=== PATIENT | female | born 1960 | race Caucasian/White ===

== ENCOUNTER 2020-08-14 19:20 | Inpatient (IN) | payer MEDICARE, MEDICAID ==
[2020-08-14 20:30] LABS: ALBUMIN 2.6 g/dL (3.5-5.0); ALKALINE PHOSPHATASE 114 U/L (38-126); ANION GAP 10 (5-19); ASPARTATE AMINO TRANSFERASE 19 U/L (14-36); BILIRUBIN,DIRECT 0.4 mg/dL (0.0-0.4); BILIRUBIN,TOTAL 0.5 mg/dL (0.2-1.3); BLOOD UREA NITROGEN 14 mg/dL (7-20); CALCIUM 8.2 mg/dL (8.4-10.2); CARBON DIOXIDE 23 mmol/L (22-30); CHLORIDE 100 mmol/L (98-107); INTERNATIONAL RATION (INR) 1.12; POTASSIUM 4.1 mmol/L (3.6-5.0); PROTHROMBIN TIME 14.6 SEC (11.4-15.4); TOTAL PROTEIN 5.4 g/dL (6.3-8.2)
[2020-08-14 20:31] LABS: APPEARANCE,URINE CLEAR; BILIRUBIN,URINE NEGATIVE (NEGATIVE); COLOR,URINE YELLOW; GLUCOSE, URINE >=500 mg/dL (NEGATIVE); KETONES,URINE 20 mg/dL (NEGATIVE); PROTEIN,URINE 30 mg/dL (NEGATIVE); URINE SPECIFIC GRAVITY 1.036; UROBILINOGEN,URINE NEGATIVE mg/dL (<2.0)
[2020-08-14 20:31] LABS: ABSOLUTE BASOPHILS # (AUTO) 0.1 10^3/uL (0.0-0.2); ABSOLUTE EOSINOPHILS # (AUTO) 0.1 10^3/uL (0.0-0.6); ABSOLUTE LYMPHOCYTES (AUTO) 0.9 10^3/uL (0.5-4.7); ABSOLUTE MONOCYTES (AUTO) 0.9 10^3/uL (0.1-1.4); BASOPHILS % (AUTO) 0.6 % (0-2); EOSINOPHILS % (AUTO) 0.9 % (0-6); HEMOGLOBIN 12.6 g/dL (12.0-15.5); LYMPHOCYTES % (AUTO) 9.3 % (13-45); MEAN CORPUSCULAR HEMOGLOBIN 30.9 pg (27.0-33.4); MEAN CORPUSCULAR HGB CONC 33.1 g/dL (32.0-36.0); MEAN CORPUSCULAR VOLUME 93 fl (80-97); MONOCYTES % (AUTO) 9.2 % (3-13); PLATELET COUNT 224 10^3/uL (150-450); RED BLOOD COUNT 4.08 10^6/uL (3.72-5.28); RED CELL DISTRIBUTION WIDTH 13.4 % (11.5-14.0); TOTAL CELLS COUNTED % (AUTO) 100 %
[2020-08-14 20:37] LABS: GLUCOSE 431 mg/dL (75-110)
[2020-08-14 20:43] LABS: VENOUS BLOOD BASE EXCESS -0.8 mmol/L; VENOUS BLOOD HCO3 24.9 mmol/L (20-32); VENOUS BLOOD PCO2 44.7 mmHg (35-63); VENOUS BLOOD PH 7.36 (7.30-7.42)
[2020-08-14] MEDS ORDERED: CLINDAMYCIN 600 MG/D5W RTU 600 MG/50 ML RTUPB IV ONE (21:19)
[2020-08-14] MEDS ORDERED: NORMAL SALINE 1000 ML 1,000 ML IV ONE (21:19)
[2020-08-14] MEDS ORDERED: INSULIN REG, HUMAN 100 UNIT/ML 3 ML VIAL (PYX) SUBCUT ONE (21:20)
--- NOTE | 2020-08-14 21:21 | ER Document Report ---
ED Wound - General Mode of Arrival: Medic Information source: Patient - HPI Patient complains to provider of: Wound infection Occurred: Last week Onset/Duration: Persistent Quality of pain: Achy Pain Level: 3 Associated Symptoms: Drainage <RAUL HICKMANLANETTE - Last Filed: 08/15/20 01:59> <TERI SAPP - Last Filed: 08/15/20 03:17> - General Chief Complaint: Wound Infection Stated Complaint: FALL Time Seen by Provider: 08/14/20 20:57 Notes: Patient states that she has had tenderness to the right buttock area for the past week and has had drainage from the wound for the past 6 days. Patient reports low-grade fever of 99-100 off and on this week. Patient states that she was at home this evening and slid in the back tub and had difficulty getting out of the bathtub. Patient states that her son was unable to get her out of the bathtub and so she had to call EMS. Patient states that she did not get any injury from the fall but is here for evaluation of the wound to the buttock. Ricki wakefield is diabetic and states that her blood sugars have typically been controlled, patient states she has been compliant with her diabetic medication. (CARLOS HICKMAN) - Related Data Allergies/Adverse Reactions: Penicillins Allergy (Verified 08/14/20 19:45) Past Medical History - General Information source: Patient - Social History Smoking Status: Former Smoker Frequency of alcohol use: None Drug Abuse: None Occupation: none Lives with: Family Family History: Reviewed & Not Pertinent - Past Medical History Cardiac Medical History: Reports: Hx DVT, Hx Hypertension Endocrine Medical History: Reports: Hx Diabetes Mellitus Type 1 Psychiatric Medical History: Reports: Hx Depression Past Surgical History: Reports: Hx Orthopedic Surgery - spinal cyst removal, right wrist surgery, Hx Tonsillectomy, Hx Tubal Ligation <CARLOS HICKMAN - Last Filed: 08/15/20 01:59> Review of Systems - Review of Systems Constitutional: No symptoms reported. denies: Fever EENT: No symptoms reported Cardiovascular: No symptoms reported. denies: Chest pain Respiratory: No symptoms reported. denies: Cough, Short of breath Gastrointestinal: No symptoms reported. denies: Vomiting Genitourinary: Frequency Female Genitourinary: No symptoms reported Musculoskeletal: No symptoms reported. denies: Back pain Skin: Other - Abscess to right buttock Hematologic/Lymphatic: No symptoms reported Neurological/Psychological: Weakness - Difficulty getting up from a fall in bathtub <CARLOS HICKMAN - Last Filed: 08/15/20 01:59> Physical Exam - General General appearance: Appears well, Alert In distress: None - HEENT Head: Normocephalic, Atraumatic Eyes: Normal Conjunctiva: Normal Nasal: Normal Mouth/Lips: Normal Neck: Normal, Supple. No: Lymphadenopathy - Respiratory Respiratory status: No respiratory distress Chest status: Nontender Breath sounds: Normal. No: Rales, Rhonchi, Stridor, Wheezing Chest palpation: Normal - Cardiovascular Rhythm: Regular Heart sounds: S1 appreciated, S2 appreciated - Abdominal Inspection: Morbidly Obese Bowel sounds: Normal Tenderness: Nontender - Back Back: Normal, Nontender. No: Vertebra tenderness - Extremities General upper extremity: Normal inspection, Normal ROM General lower extremity: Normal inspection, Normal ROM - Neurological Neuro grossly intact: Yes Cognition: Normal David Coma Scale Eye Opening: Spontaneous David Coma Scale Verbal: Oriented David Coma Scale Motor: Obeys Commands David Coma Scale Total: 15 - Psychological Associated symptoms: Normal affect, Normal mood - Skin Skin Temperature: Warm Skin Moisture: Dry Skin irregularity: other - Large abscess to right buttock with black and necrotic tissue over the opening of the wound, surrounding skin is tender and indurated, no obvious involvement of the perianal area <VICKRAULLANETTE - Last Filed: 08/15/20 01:59> - Vital signs Vitals: Temp 98.9 F 08/14/20 19:20 Course - Laboratory Result Diagrams: 08/14/20 19:43 08/14/20 19:43 <RAUL HICKMANANDRÉSGRACE - Last Filed: 08/15/20 01:59> - Laboratory Result Diagrams: 08/14/20 19:43 08/14/20 19:43 <TERI SAPP - Last Filed: 08/15/20 03:17> - Re-evaluation Re-evalutation: 08/14/20 21:[address] Baugh, Dr. Baugh to bedside for examination, he advises C T imaging to further evaluate the wound and antibiotic administration at this time. 08/15/20 01:59 Patient with perirectal abscess noted on CT scan, call placed for consultation with surgeon, surgeon currently in a case but message was relayed via the circulating nurse. Dr. leger will be by to see patient once he is finished with current case. Bedside report and handoff given to RICKI Shabazz (CARLOS HICKMAN) I spoke with surgeon Dr. Leger. He states he would like to take the patient to the operating room now, he requests a stat Accu-Chek. This was performed this was 254. 08/15/20 03:15 [address] spoke with both Dr. Leger and general surgeon Dr. Holman again, Dr. Leger req uested a consult be placed and he will see the patient but is requesting Dr. Leger to admit the patient, Dr. Leger states agreement, he states he will admit the patient, he recommends we give 5 units of insulin now and patient be kept n.p.o., patient has been n.p.o. since 11 AM yesterday, patient states agreement with operating room plan for incision and drainage of perirectal abscess. ( TERI SAPP) - Vital Signs Vital signs: Temp Pulse Resp BP Pulse Ox 99.2 F 22 H 180/94 H 95 08/15/20 01:40 08/15/20 00:01 08/15/20 00:01 08/15/20 00:01 - Laboratory Laboratory results interpreted by me: 08/14/20 08/14/20 08/14/20 19:43 19:43 20:00 Lymph % (Auto) 9.3 L Seg Neutrophils % 80.0 H Sodium 132.9 L Glucose 431 H* POC Glucose Calcium 8.2 L Total Protein 5.4 L Albumin 2.6 L Urine Protein 30 H Urine Glucose (UA) >=500 H Urine Ketones 20 H 08/14/20 08/15/20 20:05 03:07 Lymph % (Auto) Seg Neutrophils % Sodium Glucose POC Glucose 432 H* 254 H Calcium Total Protein Albumin Urine Protein Urine Glucose (UA) Urine Ketones Discharge <CARLOS HICKMAN - Last Filed: 08/15/20 01:59> - Discharge Admitting Provider: Surgicalist Unit Admitted: OR <TERI SAPP - Last Filed: 08/15/20 03:17> - Discharge Clinical Impression: Perirectal abscess Fall Qualifiers: Encounter type: initial encounter Qualified Code(s): W19.XXXA - Unspecified fall, initial encounter Condition: Stable Disposition: ADMITTED OBSERVATION
--- NOTE | 2020-08-15 01:51 | RADIOLOGY REPORT (SQ) ---
CLINICAL INDICATION: buttock abscess, ?fistula. CREAT 0.55. . TECHNIQUE: Noncontrast followed by contrast enhanced spiral axial CT imaging was obtained of the abdomen and pelvis with multiplanar reconstructions. This exam was performed according to our departmental dose-optimization program, which includes automated exposure control, adjustment of the mA and/or kV according to patient size and/or use of iterative reconstruction techniques. COMPARISON: None. CORRELATION: None. FINDINGS: Abdomen: The lung bases are grossly clear. The heart is enlarged with coronary calcification. No evidence of pleural or pericardial fluid. The liver is mildly fatty infiltrated. Focal fatty sparing in the gallbladder fossa. The gallbladder is nondistended without inflammatory change. The pancreas is unremarkable. The spleen is unremarkable. The adrenals are unremarkable. The kidneys demonstrate nonobstructing nephrolithiasis of the right kidney with tiny, less than 3 mm, calculi. There is no evidence of free air. No free fluid. No bulky adenopathy. Abdominal aorta is nonaneurysmal. Pelvis: The bowel is nonobstructed. The bowel is unopacified with oral contrast. Pelvic contents demonstrate a Rinaldi catheter within the urinary bladder. The appendix is normal. A small right perirectal abscess identified, best seen series 10 image 105. This measures 2.2 x 4 cm. No obvious intrapelvic extension. No obvious communication between this collection and the bowel. There are a few dots of air/gas within the surrounding inflamed soft tissues of the right buttock Visualized bones demonstrate age-appropriate osteoarthritis. Mild grade 1 anterior spondylolisthesis of L3 on L4 which appears be due to facet degenerative change. IMPRESSION: A small right perirectal abscess is identified. There is no obvious communication intrapelvic or with the bowel. There are a few dots of air/gas within the surrounding inflammatory change in the subcutaneous fat. Incidental note is made of hepatic steatosis.
[2020-08-15] MEDS ORDERED: FENTANYL CITRATE INJ/PF 100 MCG/2 ML AMPUL IV ONE (01:59)
[2020-08-15] MEDS ORDERED: INSULIN REG, HUMAN 100 UNIT/ML 3 ML VIAL (PYX) IV ONE (03:10)
[2020-08-15] MEDS ORDERED: NORMAL SALINE 1000 ML 1,000 ML IV PRN ×2 (03:24→05:54)
[2020-08-15] MEDS ORDERED: DEXTROSE 50%-WATER 25 GM/50 ML DISP.SYRIN IV PRN ×2 (03:27)
[2020-08-15] MEDS ORDERED: GLUCAGON,HUMAN RECOMB 1 MG INJ IM PRN (03:27)
[2020-08-15] MEDS ORDERED: DEXTROSE 40% GEL 15 GM TUBE PO PRN ×2 (03:27)
[2020-08-15] MEDS ORDERED: METOPROLOL TARTRATE PF/INJ 5 MG/5 ML SDV IV PRN (03:28)
[2020-08-15] MEDS ORDERED: HYDRALAZINE HCL INJ/PF 20 MG/1 ML SDV IV PRN (03:28)
[2020-08-15] MEDS ORDERED: HYDRALAZINE HCL INJ/PF 20 MG/1 ML SDV IV ONE (03:29)
[2020-08-15] MEDS ORDERED: ACETAMINOPHEN 325 MG TABLET PO ONE (03:30)
[2020-08-15] MEDS ORDERED: ACETAMINOPHEN 325 MG TABLET PO PRN (03:30)
[2020-08-15] MEDS ORDERED: VANCOMYCIN HCL 0 MG in DEXTROSE 5%-WATER 250 ML IV NR (03:30)
[2020-08-15] MEDS ORDERED: MORPHINE SULFATE 10 MG/ML INJ IV PRN ×2 (03:31→05:11)
--- NOTE | 2020-08-15 03:48 | PDOC H&P ---
History of Present Illness Admission Date/PCP: 08/15/20 03:21 Patient complains of: Buttocks pain History of Present Illness: ADELA MUELLER is a 60 year old female with diabetes who has noted pain at her right buttocks for the past week with it spontaneously rupturing couple of days ago with drainage of brownish purulent fluid. Patient still has had persistent pain in this region and she came in for evaluation. She denies any known fever. She notes that she did not have any pain with bowel movements. She denies any prior problems in this region. She denies any abdominal symptoms. 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 Hx Prescription Drug Abuse: No Family History Family History: Reviewed & Not Pertinent Parental Family History Reviewed: No Children Family History Reviewed: No Sibling(s) Family History Reviewed.: No Medication/Allergy Allergies/Adverse Reactions: Penicillins Allergy (Verified 08/14/20 19:45) Physical Exam Vital Signs: Temp Pulse Resp BP Pulse Ox 99.2 F 22 H 180/94 H 95 08/15/20 01:40 08/15/20 00:01 08/15/20 00:01 08/15/20 00:01 Intake & Output 08/13/20 08/14/20 08/15/20 06:59 06:59 06:59 Intake Total 1050 Balance 1050 Weight 113.398 kg General appearance: PRESENT: no acute distress, cooperative Respiratory exam: PRESENT: clear to auscultation mahamed Cardiovascular exam: PRESENT: RRR GI/Abdominal exam: PRESENT: other - Obese, nondistended and nontender to palpation. Rectal exam: PRESENT: other - Normal anal sphincter tone with no palpable masses nor fluctuance on digital rectal exam nor tenderness on digital rectal exam. Patient with a approximately 8 cm laceration in the right perineal region extending to the inferior border of the labia with surrounding induration and erythema with some necrotic debris at the edges. Due to pain I could not fully examined the depth of the laceration but it extended deep into the subcutaneous tissue. Difficult to tell whether this cavity connected to the perianal region. Neurological exam: PRESENT: alert, awake Psychiatric exam: PRESENT: appropriate affect Skin exam: PRESENT: warm Results Laboratory Results: 08/14/20 19:43 08/14/20 19:43 08/14/20 08/14/20 08/14/20 18:22 19:43 19:43 WBC 10.0 RBC 4.08 Hgb 12.6 Hct 38.0 MCV 93 MCH 30.9 MCHC 33.1 RDW 13.4 Plt Count 224 Seg Neutrophils % 80.0 H VBG pH 7.36 VBG pCO2 44.7 VBG HCO3 24.9 VBG Base Excess -0.8 Sodium 132.9 L Potassium 4.1 Chloride 100 Carbon Dioxide 23 Anion Gap 10 BUN 14 Creatinine 0.55 Est GFR ( Amer) > 60 Glucose 431 H* Lactic Acid Calcium 8.2 L Total Bilirubin 0.5 AST 19 Alkaline Phosphatase 114 Total Protein 5.4 L Albumin 2.6 L Urine Color Urine Appearance Urine pH Ur Specific [place] Urine Protein Urine Glucose (UA) Urine Ketones Urine Blood Urine RBC (Auto) 08/14/20 08/14/20 20:00 22:34 WBC RBC Hgb Hct MCV MCH MCHC RDW Plt Count Seg Neutrophils % VBG pH VBG pCO2 VBG HCO3 VBG Base Excess Sodium Potassium Chloride Carbon Dioxide Anion Gap BUN Creatinine Est GFR ( Amer) Glucose Lactic Acid 1.0 Calcium Total Bilirubin AST Alkaline Phosphatase Total Protein Albumin Urine Color YELLOW Urine Appearance CLEAR Urine pH 6.0 Ur Specific [place] 1.036 Urine Protein 30 H Urine Glucose (UA) >=500 H Urine Ketones 20 H Urine Blood NEGATIVE Urine RBC (Auto) 0 Impressions: Abdomen/Pelvis CT 08/15/20 00:00 IMPRESSION: A small right perirectal abscess is identified. There is no obvious communication intrapelvic or with the bowel. There are a few dots of air/gas within the surrounding inflammatory change in the subcutaneous fat. Incidental note is made of hepatic steatosis. Assessment & Plan - Diagnosis (1) Perineal abscess Is this a current diagnosis for this admission?: Yes Plan: I cannot entirely rule out a perianal process but appears less likely with no pain on digital rectal exam. I have reviewed the CT scan and I am not convinced that radiology interpretation of a small perianal abscess is true. Nevertheless patient would benefit from debridement of this area and examination under anesthesia to make sure that there is no undrained abscess pocket and a clean out this area especially in a diabetic patient. I have discussed with the patient the risk and benefits of the procedure including risk of poor wound healing. I suspect that I will not need to extend the large laceration she already has. She denies any trauma to this region and I suspect that she had a fairly large abscess that eventually ruptured 2 days ago. I have discussed with the patient the risk of bleeding and infection as well as risk of developing a fistula if she indeed has a perianal abscess. She understands and agrees to proceed. She understands that the wound will be left open. (2) Diabetes mellitus Is this a current diagnosis for this admission?: Yes Plan: Poorly controlled. IV insulin was given in the ER prior to surgery. We will ask hospitalist to help manage this patient. - Time Anticipated Discharge Disposition: Home, Self Care Anticipated Discharge Timeframe: within 72 hours
[2020-08-15] MEDS ORDERED: MIDAZOLAM 2 MG/2 ML INJ ONE (03:56)
[2020-08-15] MEDS ORDERED: PROPOFOL INJ 200 MG/20 ML VIAL IV ONE (03:56)
[2020-08-15] MEDS ORDERED: FENTANYL CITRATE INJ/PF 250 MCG/5 ML AMPULE ONE (03:56)
[2020-08-15] MEDS ORDERED: ONDANSETRON HCL INJ/PF 4 MG/2 ML SDV ONE (03:56)
[2020-08-15] MEDS ORDERED: BUPIVACAINE HCL 0.25 % INJ/PF (2.5 MG/1 ML) 30 ML VIAL ONE ×2 (04:05→05:06)
[2020-08-15] MEDS ORDERED: LIDOCAINE 1%/EPINEPHRINE INJ 20 ML VIAL ONE (04:05)
[2020-08-15] MEDS ORDERED: LEVOFLOXACIN 500 MG/D5W RTU 500 MG/100 ML RTUPB IV ONE (05:00)
[2020-08-15] MEDS ORDERED: LIDOCAINE 1% INJ-PF (10 MG/ML) 30 ML SDV ONE (05:04)
[2020-08-15] MEDS ORDERED: PROMETHAZINE HCL INJ 25 MG/1 ML VIAL IV PRN ×2 (05:11)
[2020-08-15] MEDS ORDERED: FENTANYL CITRATE INJ/PF 100 MCG/2 ML AMPUL IV PRN ×3 (05:11)
[2020-08-15] MEDS ORDERED: MEPERIDINE HCL/PF INJ 25 MG/1 ML DISP.SYRIN IV PRN (05:11)
[2020-08-15] MEDS ORDERED: OXYCODONE-ACETAMINOPHEN 5-325 MG TABLET PO PRN ×3 (05:11→11:20)
[2020-08-15] MEDS ORDERED: DIPHENHYDRAMINE HCL 50 MG/ML VIAL IV PRN (05:11)
--- NOTE | 2020-08-15 05:18 | PDOC CONSULTATION ---
Consultation Consult Date: 08/15/20 Attending physician:: JOYA FOLEY Provider Consulted: SHADY BROWN Consult reason:: Medical Management History of Present Illness Admission Date/PCP: 08/15/20 03:21 History of Present Illness: ADELA MUELLER is a 60 year old female past medical history of DVT, hypertension, diabetes, depression, presenting to ED complaining of right buttock pain and swelling for the last 1 week, patient noted swelling to spontaneous rupture couple of days ago with drainage of brown purulent fluid. Patient is complaining of severe rectal pain, otherwise denies any fever, chills, nausea, vomiting, diarrhea, constipation or any urinary symptoms. Patient was admitted under surgical team for I&D of rectal abscess and hospitalist was consulted for medical medical management of diabetes, hypertension. 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 Hx Prescription Drug Abuse: No Family History Family History: Reviewed & Not Pertinent Parental Family History Reviewed: Yes Children Family History Reviewed: Yes Sibling(s) Family History Reviewed.: Yes Medication/Allergy Allergies/Adverse Reactions: Penicillins Allergy (Verified 08/14/20 19:45) Review of Systems Review of Systems: as per hpi Physical Exam Vital Signs: Temp Pulse Resp BP Pulse Ox 99.2 F 22 H 180/94 H 95 08/15/20 01:40 08/15/20 00:01 08/15/20 00:01 08/15/20 00:01 Intake & Output 08/13/20 08/14/20 08/15/20 06:59 06:59 06:59 Intake Total 1050 Balance 1050 Weight 113.398 kg General appearance: PRESENT: no acute distress, well-developed, well-nourished Head exam: PRESENT: atraumatic, normocephalic Respiratory exam: PRESENT: clear to auscultation mahamed. ABSENT: rales, rhonchi, wheezes GI/Abdominal exam: PRESENT: normal bowel sounds, soft. ABSENT: distended, guarding, mass, organolmegaly, rebound, tenderness Extremities exam: PRESENT: full ROM. ABSENT: calf tenderness, clubbing, pedal edema Neurological exam: PRESENT: alert, awake, oriented to person, oriented to place, oriented to time, oriented to situation, CN II-XII grossly intact. ABSENT: motor sensory deficit Results Laboratory Results: 08/14/20 19:43 08/14/20 19:43 08/14/20 08/14/20 08/14/20 18:22 19:43 19:43 WBC 10.0 RBC 4.08 Hgb 12.6 Hct 38.0 MCV 93 MCH 30.9 MCHC 33.1 RDW 13.4 Plt Count 224 Seg Neutrophils % 80.0 H VBG pH 7.36 VBG pCO2 44.7 VBG HCO3 24.9 VBG Base Excess -0.8 Sodium 132.9 L Potassium 4.1 Chloride 100 Carbon Dioxide 23 Anion Gap 10 BUN 14 Creatinine 0.55 Est GFR ( Amer) > 60 Glucose 431 H* Lactic Acid Calcium 8.2 L Total Bilirubin 0.5 AST 19 Alkaline Phosphatase 114 Total Protein 5.4 L Albumin 2.6 L Urine Color Urine Appearance Urine pH Ur Specific [place] Urine Protein Urine Glucose (UA) Urine Ketones Urine Blood Urine RBC (Auto) 08/14/20 08/14/20 20:00 22:34 WBC RBC Hgb Hct MCV MCH MCHC RDW Plt Count Seg Neutrophils % VBG pH VBG pCO2 VBG HCO3 VBG Base Excess Sodium Potassium Chloride Carbon Dioxide Anion Gap BUN Creatinine Est GFR ( Amer) Glucose Lactic Acid 1.0 Calcium Total Bilirubin AST Alkaline Phosphatase Total Protein Albumin Urine Color YELLOW Urine Appearance CLEAR Urine pH 6.0 Ur Specific [place] 1.036 Urine Protein 30 H Urine Glucose (UA) >=500 H Urine Ketones 20 H Urine Blood NEGATIVE Urine RBC (Auto) 0 Impressions: Abdomen/Pelvis CT 08/15/20 00:00 IMPRESSION: A small right perirectal abscess is identified. There is no obvious communication intrapelvic or with the bowel. There are a few dots of air/gas within the surrounding inflammatory change in the subcutaneous fat. Incidental note is made of hepatic steatosis. Assessment and Plan - Diagnosis (1) Diabetes mellitus Is this a current diagnosis for this admission?: Yes Plan: History of poorly controlled diabetes. Presented with severe hyperglycemia. Diabetic diet, sliding scale, basal and prandial insulin. Accu-Chek. Adjust medication as needed. Hypoglycemia protocol. Outpatient PCP follow-up. (2) Perirectal abscess Is this a current diagnosis for this admission?: Yes Plan: Scheduled for I&D by surgical team. Will defer management to surgery. (3) HTN (hypertension) Is this a current diagnosis for this admission?: Yes Plan: Uncontrolled. Euvolemic. Resume home meds. Adjust meds as needed. Outpatient PCP follow-up. - Time Time Spent with patient: 25-34 minutes Medications reviewed and adjusted accordingly: Yes Anticipated Discharge Disposition: Home, Self Care Anticipated Discharge Timeframe: within 72 hours
[2020-08-15] MEDS ORDERED: BACITRACIN INJ 50,000 UNIT VIAL ONE (05:22)
--- NOTE | 2020-08-15 05:54 | Operative Report ---
Operative Report DATE OF SURGERY: 08/15/20 PREOPERATIVE DIAGNOSIS: Perineal complex abscess. POSTOPERATIVE DIAGNOSIS: Deep perineal complex abscess. Opening measuring about 6 cm in size. Abscess tracks in about a 5 x 10 cm region. OPERATION: Excisional debridement of complex deep perineal abscess. Exam under anesthesia. SURGEON: JOYA FOLEY ANESTHESIA: GA TISSUE REMOVED OR ALTERED: Necrotic debris removed. Purulent fluid sent for Gram stain and culture. COMPLICATIONS: None. ESTIMATED BLOOD LOSS: 50 cc INTRAOPERATIVE FINDINGS: About a 6 cm laceration/opening of right perineal abscess with multiple tracts extending deep into the perineal tissue toward the labia as well as the perianal region and posterior buttocks with purulent fluid within these pockets. Necrotic debris at the wound edge. PROCEDURE: Informed consent was obtained. Patient was brought to the operating room placed operating table in the supine position. After satisfactory induction of general anesthesia patient was placed in a lithotomy position and her perineum was prepped and draped in usual sterile fashion. Patient had a 6 cm laceration type opening at the right perineum with necrotic debris at the edges. The necrotic edges were sharply excised. The underlying cavity was probed digitally revea ling extensions going toward the labia as well as deep in the perineum and also to the perianal region but with no obvious connection to the anal canal. It also extended to the posterior buttocks. All of these loculations were completely broken up with drainage of purulent fluid. The underlying tracts existed in about a 10 x 5 cm region. Once I was certain that I opened up all of the tracts I made counterincisions anteriorly in the milan-labial region and placed a [place] drain connecting this counterincision to the pre-existing large open wound and sutured the [place] drain together. Counterincision was also made in the posterior medial buttocks region and again a [place] drain was placed in this area in a similar fashion. Hemostasis was achieved with electrocautery. The operative field was irrigated copiously with bacitracin impregnated solution. Local anesthetic was injected. The wound was packed with Kerlix. Patient tolerated procedure well with no apparent complications and was taken to the recovery area in stable condition. Of note the pre-existing laceration/opening was not extended during surgery.
[2020-08-15] MEDS ORDERED: PIPERACILLIN SODIUM/TAZOBACTAM 4.5 GM in NORMAL SALINE 100 ML IV SCH (06:00)
[2020-08-15] MEDS: MORPHINE SULFATE 10 MG/ML INJ IV PRN ×3 (07:04→20:38)
[2020-08-15] MEDS: INSULIN LISPRO 100 UNIT/ML 3 ML VIAL SUBCUT SCH ×3 (07:28→21:45)
[2020-08-15] MEDS: CLINDAMYCIN 900 MG/D5W RTU 900 MG/50 ML RTUPB IV SCH ×3 (07:29→21:44)
[2020-08-15] MEDS: LEVOFLOXACIN 500 MG/D5W RTU 500 MG/100 ML RTUPB IV SCH (09:00)
[2020-08-15 10:24] LABS: ANION GAP 11 (5-19); BLOOD UREA NITROGEN 11 mg/dL (7-20); CALCIUM 7.7 mg/dL (8.4-10.2); CARBON DIOXIDE 23 mmol/L (22-30); CHLORIDE 101 mmol/L (98-107); GLUCOSE 273 mg/dL (75-110); POTASSIUM 3.7 mmol/L (3.6-5.0)
[2020-08-15] MEDS: ENOXAPARIN SODIUM INJ 40 MG/0.4 ML DISP.SYRIN SUBCUT SCH (10:50)
[2020-08-15] MEDS: OXYCODONE-ACETAMINOPHEN 5-325 MG TABLET PO PRN (15:42)
[2020-08-15] MEDS: GABAPENTIN 400 MG CAPSULE PO SCH ×2 (15:42→21:46)
[2020-08-15] MEDS ORDERED: AMLODIPINE BESYLATE 10 MG TABLET PO ONE (16:00)
[2020-08-15] MEDS ORDERED: INSULIN LISPRO 100 UNIT/ML 3 ML VIAL SUBCUT ONE (18:00)
--- NOTE | 2020-08-15 18:16 | PDOC PROGRESS REPORT ---
Subjective Progress Note for:: 08/15/20 Subjective:: ADELA MUELLER is a 60 year old female past medical history of DVT, hypertension, diabetes, and depression who was admitted 08/15/2020 for perirectal abscess; now status post surgical intervention. Patient was seen on morning rounds. She is found resting in bed, comfortably, on supplemental oxygen by nasal cannula. She is not home O2 dependent. She denies dyspnea, orthopnea, and cough. She does admit to continued rectal pain; moderately well controlled with current pain medication regimen. She tells me that she has had difficulty returning home after coming to visit her family; reports that her son was supposed to drive her back to [place] where she lives, however, he has refused to do so when she essentially finds herself abandoned here locally. She has asked to speak with manager social media about this. Otherwise, she has no questions or concerns at this time. She further denies fever, chills, chest pain, palpitations, abdominal pain, nausea and vomiting. No concerns per nursing. Reason For Visit: COMPLEX PERINEAL ABSCESS Physical Exam Vital Signs: Temp Pulse Resp BP Pulse Ox 98.7 F 80 16 165/73 H 100 08/15/20 11:20 08/15/20 11:20 08/15/20 11:20 08/15/20 11:20 08/15/20 11:20 Intake & Output 08/14/20 08/15/20 08/16/20 06:59 06:59 06:59 Intake Total 1350 200 Output Total 800 Balance 550 200 Weight 127.6 kg General appearance: PRESENT: no acute distress, cooperative, obese, well- developed, well-nourished Head exam: PRESENT: atraumatic, normocephalic Eye exam: PRESENT: conjunctiva pink, EOMI, PERRLA. ABSENT: scleral icterus Mouth exam: PRESENT: moist, tongue midline Teeth exam: PRESENT: poor dentation Respiratory exam: PRESENT: clear to auscultation mahamed, symmetrical, unlabored, other - Omental oxygen by nasal cannula. ABSENT: rales, rhonchi, wheezes Cardiovascular exam: PRESENT: RRR. ABSENT: diastolic murmur, rubs, systolic murmur Vascular exam: PRESENT: normal capillary refill GI/Abdominal exam: PRESENT: normal bowel sounds, soft. ABSENT: distended, guarding, mass, organolmegaly, rebound, tenderness Rectal exam: PRESENT: deferred Gentrourinary exam: PRESENT: indwelling catheter Extremities exam: PRESENT: full ROM. ABSENT: calf tenderness, clubbing, pedal edema Musculoskeletal exam: PRESENT: ambulatory Neurological exam: PRESENT: alert, awake, oriented to person, oriented to place, oriented to time, oriented to situation, CN II-XII grossly intact. ABSENT: motor sensory deficit Psychiatric exam: PRESENT: appropriate affect, normal mood. ABSENT: homicidal ideation, suicidal ideation Skin exam: PRESENT: dry, intact, warm. ABSENT: cyanosis, rash Results Laboratory Results: 08/14/20 19:43 08/15/20 08:43 08/14/20 08/14/20 08/14/20 18:22 19:43 19:43 WBC 10.0 RBC 4.08 Hgb 12.6 Hct 38.0 MCV 93 MCH 30.9 MCHC 33.1 RDW 13.4 Plt Count 224 Seg Neutrophils % 80.0 H VBG pH 7.36 VBG pCO2 44.7 VBG HCO3 24.9 VBG Base Excess -0.8 Sodium 132.9 L Potassium 4.1 Chloride 100 Carbon Dioxide 23 Anion Gap 10 BUN 14 Creatinine 0.55 Est GFR ( Amer) > 60 Glucose 431 H* Lactic Acid Calcium 8.2 L Total Bilirubin 0.5 AST 19 Alkaline Phosphatase 114 Total Protein 5.4 L Albumin 2.6 L Urine Color Urine Appearance Urine pH Ur Specific [place] Urine Protein Urine Glucose (UA) Urine Ketones Urine Blood Urine RBC (Auto) 08/14/20 08/14/20 08/15/20 20:00 22:34 08:43 WBC RBC Hgb Hct MCV MCH MCHC RDW Plt Count Seg Neutrophils % VBG pH VBG pCO2 VBG HCO3 VBG Base Excess Sodium 135.1 L Potassium 3.7 Chloride 101 Carbon Dioxide 23 Anion Gap 11 BUN 11 Creatinine 0.46 L Est GFR ( Amer) > 60 Glucose 273 H Lactic Acid 1.0 Calcium 7.7 L Total Bilirubin AST Alkaline Phosphatase Total Protein Albumin Urine Color YELLOW Urine Appearance CLEAR Urine pH 6.0 Ur Specific [place] 1.036 Urine Protein 30 H Urine Glucose (UA) >=500 H Urine Ketones 20 H Urine Blood NEGATIVE Urine RBC (Auto) 0 Impressions: Abdomen/Pelvis CT 08/15/20 00:00 IMPRESSION: A small right perirectal abscess is identified. There is no obvious communication intrapelvic or with the bowel. There are a few dots of air/gas within the surrounding inflammatory change in the subcutaneous fat. Incidental note is made of hepatic steatosis. Assessment and Plan - Diagnosis (1) Perirectal abscess Is this a current diagnosis for this admission?: Yes Plan: Scheduled for I&D by surgical team. Will defer management to surgery. (2) Diabetes mellitus Qualifiers: Diabetes mellitus type: type 2 Diabetes mellitus termite control representative insulin use: with fdc use Is this a current diagnosis for this admission?: Yes Plan: We will check A1c with a.m. lab work. Patient is placed on a consistent carb diet. Lantus 60 units nightly (takes 80 units nightly at home). Accu-Cheks before meals and at bedtime with Humalog for sliding scale coverage. Hypoglycemia protocol in place. Registered dietitian clinical document improvement educator consulted. (3) HTN (hypertension) Is this a current diagnosis for this admission?: Yes Plan: Uncontrolled; somewhat improved following resumption of home meds. Euvolemic. Continue home dose Amlodipine, Coreg, Clonidine. Consider start of CANDICE/ARB if remains uncontrolled. As needed hydralazine and metoprolol. Outpatient PCP follow-up. (4) Depression Is this a current diagnosis for this admission?: Yes Plan: Stable. Continue home medication regiment Wellbutrin, citalopram, gabapentin, trazodone nightly. (5) Morbid obesity with BMI of 40.0-44.9, adult Is this a current diagnosis for this admission?: Yes Plan: BMI 44.1 Lifestyle modification and dietary compliance are encouraged. information systems security developer and patient educator are consulted. - Time Time Spent with patient: 25-34 minutes Medications reviewed and adjusted accordingly: Yes Anticipated Discharge Disposition: Home, Self Care Anticipated Discharge Timeframe: pending surgical clearance
--- NOTE | 2020-08-15 21:27 | EKG REPORT ---
SEVERITY:- ABNORMAL ECG - SINUS RHYTHM RIGHT BUNDLE BRANCH BLOCK : Confirmed by: Tanna Clinton MD 15-Aug-2020 21:26:44
[2020-08-15] MEDS: BUPROPION HCL 75 MG TABLET PO SCH (21:45)
[2020-08-15] MEDS: CLONIDINE HCL 0.2 MG TABLET PO SCH (21:45)
[2020-08-15] MEDS: TRAZODONE HCL 50 MG TABLET PO SCH (21:46)
[2020-08-15] MEDS: CARVEDILOL 12.5 MG TABLET PO SCH (21:46)
[2020-08-15] MEDS ORDERED: INSULIN GLARGINE,HUM.REC.ANLOG 1,000 UNIT/10 ML VIAL SUBCUT SCH (22:00)
[2020-08-15] MEDS ORDERED: (PENDING PHARMACY ID) (Insulin Glargine,Hum.Rec.Anlog [Toujeo Solostar] 60 UNIT) SQ SCH (22:00)
[2020-08-16] MEDS: CLINDAMYCIN 900 MG/D5W RTU 900 MG/50 ML RTUPB IV SCH ×3 (02:08→18:05)
[2020-08-16] MEDS: OXYCODONE-ACETAMINOPHEN 5-325 MG TABLET PO PRN ×4 (03:09→22:51)
[2020-08-16 05:53] LABS: HEMOGLOBIN 11.4 g/dL (12.0-15.5); MEAN CORPUSCULAR HEMOGLOBIN 31.1 pg (27.0-33.4); MEAN CORPUSCULAR HGB CONC 33.4 g/dL (32.0-36.0); MEAN CORPUSCULAR VOLUME 93 fl (80-97); PLATELET COUNT 195 10^3/uL (150-450); RED BLOOD COUNT 3.66 10^6/uL (3.72-5.28); RED CELL DISTRIBUTION WIDTH 13.6 % (11.5-14.0); WHITE BLOOD COUNT 10.3 10^3/uL (4.0-10.5)
[2020-08-16 06:09] LABS: ANION GAP 8 (5-19); BLOOD UREA NITROGEN 13 mg/dL (7-20); CALCIUM 7.6 mg/dL (8.4-10.2); CARBON DIOXIDE 25 mmol/L (22-30); CHLORIDE 99 mmol/L (98-107); GLUCOSE 319 mg/dL (75-110); POTASSIUM 3.6 mmol/L (3.6-5.0)
[2020-08-16] MEDS: GABAPENTIN 400 MG CAPSULE PO SCH ×3 (06:35→22:01)
[2020-08-16] MEDS: MORPHINE SULFATE 10 MG/ML INJ IV PRN ×2 (06:45→20:02)
[2020-08-16] MEDS: INSULIN LISPRO 100 UNIT/ML 3 ML VIAL SUBCUT SCH ×4 (07:31→22:00)
[2020-08-16] MEDS ORDERED: LEVOFLOXACIN 500 MG/D5W RTU 500 MG/100 ML RTUPB IV SCH (08:00)
[2020-08-16] MEDS: BUPROPION HCL 75 MG TABLET PO SCH ×2 (09:27→22:01)
[2020-08-16] MEDS: AMLODIPINE BESYLATE 10 MG TABLET PO SCH (09:27)
[2020-08-16] MEDS: CLONIDINE HCL 0.2 MG TABLET PO SCH ×2 (09:27→22:01)
[2020-08-16] MEDS: CARVEDILOL 12.5 MG TABLET PO SCH ×2 (09:27→22:01)
[2020-08-16] MEDS: FUROSEMIDE 40 MG TABLET PO SCH (09:28)
[2020-08-16] MEDS: LEVOFLOXACIN 500 MG/D5W RTU 500 MG/100 ML RTUPB IV SCH (09:28)
[2020-08-16] MEDS: CITALOPRAM HYDROBROMIDE 20 MG TABLET PO SCH (09:28)
[2020-08-16] MEDS ORDERED: (PENDING PHARMACY ID) (Bupropion Hcl [Bupropion Xl] 150 MG) PO SCH (10:00)
[2020-08-16] MEDS: ENOXAPARIN SODIUM INJ 40 MG/0.4 ML DISP.SYRIN SUBCUT SCH (11:38)
--- NOTE | 2020-08-16 12:38 | PDOC PROGRESS REPORT ---
Subjective Progress Note for:: 08/16/20 Reason For Visit: COMPLEX PERINEAL ABSCESS Patient doing well, sitting in chair; having moderate amount of drainage and some pain but no worse Physical Exam Vital Signs: Temp Pulse Resp BP Pulse Ox 99.0 F 72 21 H 107/47 L 88 L 08/16/20 11:30 08/16/20 11:30 08/16/20 11:30 08/16/20 11:30 08/16/20 11:30 Intake & Output 08/15/20 08/16/20 08/17/20 06:59 06:59 06:59 Intake Total 1350 770 100 Output Total 800 475 Balance 550 295 100 Weight 127.6 kg 129.8 kg General appearance: PRESENT: no acute distress Rectal exam: PRESENT: other - She is examined in the prone position. 2 large [employer] loop drains in position and manipulated. They communicate with the large debrided cavity which is granulating in. At the superior counterincision site there is some surrounding induration and tenderness. Results Laboratory Results: 08/16/20 05:06 08/16/20 05:06 08/16/20 08/16/20 05:06 05:06 WBC 10.3 RBC 3.66 L Hgb 11.4 L Hct 34.0 L MCV 93 MCH 31.1 MCHC 33.4 RDW 13.6 Plt Count 195 Sodium 132.3 L Potassium 3.6 Chloride 99 Carbon Dioxide 25 Anion Gap 8 BUN 13 Creatinine 0.66 Est GFR ( Amer) > 60 Glucose 319 H Calcium 7.6 L 08/14/20 21:49 Buttocks - Abscess Gram Stain - Final Impressions: Abdomen/Pelvis CT 08/15/20 00:00 IMPRESSION: A small right perirectal abscess is identified. There is no obvious communication intrapelvic or with the bowel. There are a few dots of air/gas within the surrounding inflammatory change in the subcutaneous fat. Incidental note is made of hepatic steatosis. Assessment & Plan - Diagnosis (1) Perineal abscess Is this a current diagnosis for this admission?: Yes Plan: Impression: Patient is 2 days status post a wide debridement of perineal abscess with counterincisions and loop drains, with no fever, however persisting erythema and induration around the superior drain site; otherwise wounds open and actively draining; no leukocytosis, blood sugars coming down Recommendations: 1. I do not believe additional drainage is required as the [employer] loop drain only through the superior counterincision appears to be adequate at this time 2. We will get patient in shower, flexible hose had to wash her perineum 3. Continue intravenous antibiotics, insulin therapy (2) Diabetes mellitus Qualifiers: Diabetes mellitus type: type 2 Diabetes mellitus ferry terminal agent insulin use: with fpc use - Time Time Spent: 30 to 50 Minutes Critical Time spent with patient: Less than 15 minutes Medications reviewed and adjusted accordingly: Yes Anticipated Discharge Disposition: Home with Home Health Anticipated Discharge Timeframe: within 72 hours
--- NOTE | 2020-08-16 13:00 | PDOC PROGRESS REPORT ---
Subjective Progress Note for:: 08/16/20 Subjective:: ADELA MUELLER is a 60 year old female past medical history of DVT, hypertension, diabetes, and depression who was admitted 08/15/2020 for perirectal abscess; now status post surgical intervention. Patient was seen on morning rounds. She is found sitting up to the recliner, comfortably, on room air. Reports continued rectal pressure/pain. Requesting pain medications. She denies fever, chest pain, dyspnea, orthopnea, cough, abd pain, nausea, and vomiting. She has no other questions or concerns at this time. No concerns per nursing. Reason For Visit: COMPLEX PERINEAL ABSCESS Physical Exam Vital Signs: Temp Pulse Resp BP Pulse Ox 99.0 F 72 21 H 107/47 L 88 L 08/16/20 11:30 08/16/20 11:30 08/16/20 11:30 08/16/20 11:30 08/16/20 11:30 Intake & Output 08/15/20 08/16/20 08/17/20 06:59 06:59 06:59 Intake Total 1350 770 100 Output Total 800 475 Balance 550 295 100 Weight 127.6 kg 129.8 kg General appearance: PRESENT: no acute distress, cooperative, morbidly obese, well-developed, well-nourished Head exam: PRESENT: atraumatic, normocephalic Eye exam: PRESENT: conjunctiva pink, EOMI, PERRLA. ABSENT: scleral icterus Mouth exam: PRESENT: moist, tongue midline Respiratory exam: PRESENT: clear to auscultation mahamed, symmetrical, unlabored, other - room air. ABSENT: rales, rhonchi, wheezes Cardiovascular exam: PRESENT: RRR. ABSENT: diastolic murmur, rubs, systolic murmur Vascular exam: PRESENT: normal capillary refill Extremities exam: PRESENT: full ROM. ABSENT: calf tenderness, clubbing, pedal edema Musculoskeletal exam: PRESENT: ambulatory Neurological exam: PRESENT: alert, awake, oriented to person, oriented to place, oriented to time, oriented to situation, CN II-XII grossly intact. ABSENT: motor sensory deficit Psychiatric exam: PRESENT: appropriate affect, normal mood. ABSENT: homicidal ideation, suicidal ideation Skin exam: PRESENT: dry, intact, warm. ABSENT: cyanosis, rash Results Laboratory Results: 08/16/20 05:06 08/16/20 05:06 08/16/20 08/16/20 05:06 05:06 WBC 10.3 RBC 3.66 L Hgb 11.4 L Hct 34.0 L MCV 93 MCH 31.1 MCHC 33.4 RDW 13.6 Plt Count 195 Sodium 132.3 L Potassium 3.6 Chloride 99 Carbon Dioxide 25 Anion Gap 8 BUN 13 Creatinine 0.66 Est GFR ( Amer) > 60 Glucose 319 H Calcium 7.6 L 08/14/20 21:49 Buttocks - Abscess Gram Stain - Final Impressions: Abdomen/Pelvis CT 08/15/20 00:00 IMPRESSION: A small right perirectal abscess is identified. There is no obvious communication intrapelvic or with the bowel. There are a few dots of air/gas within the surrounding inflammatory change in the subcutaneous fat. Incidental note is made of hepatic steatosis. Assessment and Plan - Diagnosis (1) Perineal abscess Is this a current diagnosis for this admission?: Yes Plan: Perineal abscess POD#2 surgical debridement w/ drains placed Blood cultures negative at 24 hours Urine cultures growing 2 strains Gram negative rods. Continue IV Levaquin and clindamycin. Primary management per surgical service. 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 Increase to Lantus 70 units nightly (takes 80 units nightly at home). Accu-Cheks before meals and at bedtime with Humalog for sliding scale coverage. Hypoglycemia protocol in place. Registered dietitian and clinic scheduler consulted. (3) HTN (hypertension) Is this a current diagnosis for this admission?: Yes Plan: Well controlled at present. Provide for adequate pain control. Continue home dose Amlodipine, Coreg, Clonidine. Consider start of CANDICE/ARB if remains uncontrolled. As needed hydralazine and metoprolol. Outpatient PCP follow-up. (4) Depression Is this a current diagnosis for this admission?: Yes Plan: Stable. Continue home medication regiment Wellbutrin, citalopram, gabapentin, trazodone nightly. (5) Morbid obesity with BMI of 40.0-44.9, adult Is this a current diagnosis for this admission?: Yes Plan: BMI 44.1 Lifestyle modification and dietary compliance are encouraged. sports psychologist and patient educator are consulted. - Time Time Spent with patient: 25-34 minutes Medications reviewed and adjusted accordingly: Yes Anticipated Discharge Disposition: Home, Self Care Anticipated Discharge Timeframe: undetermined
[2020-08-16] MEDS ORDERED: INSULIN GLARGINE,HUM.REC.ANLOG 1,000 UNIT/10 ML VIAL SUBCUT SCH (22:00)
[2020-08-16] MEDS: TRAZODONE HCL 50 MG TABLET PO SCH (22:01)
[2020-08-16] MEDS ORDERED: MICONAZOLE NITRATE 200 MG/SUPP (3 SUPP/BOX) ONE (22:21)
[2020-08-16] MEDS: MICONAZOLE NITRATE 200 MG/SUPP (3 SUPP/BOX) VG SCH (22:34)
[2020-08-17] MEDS: CLINDAMYCIN 900 MG/D5W RTU 900 MG/50 ML RTUPB IV SCH (03:51)
[2020-08-17] MEDS: GABAPENTIN 400 MG CAPSULE PO SCH ×3 (06:12→21:52)
[2020-08-17] MEDS: MORPHINE SULFATE 10 MG/ML INJ IV PRN (06:45)
[2020-08-17] MEDS: INSULIN LISPRO 100 UNIT/ML 3 ML VIAL SUBCUT SCH ×4 (07:48→21:54)
--- NOTE | 2020-08-17 09:48 | RADIOLOGY REPORT (SQ) ---
EXAM DESCRIPTION: CHEST SINGLE VIEW IMAGES COMPLETED DATE/TIME: 08/17/2020 9:34 am REASON FOR STUDY: dyspnea COMPARISON: None. EXAM PARAMETERS: NUMBER OF VIEWS: One view. TECHNIQUE: Single frontal radiographic view of the chest acquired. RADIATION DOSE: NA LIMITATIONS: None. FINDINGS: LUNGS AND PLEURA: No opacities, masses or pneumothorax. No pleural effusion. MEDIASTINUM AND HILAR STRUCTURES: No masses. Contour normal. HEART AND VASCULAR STRUCTURES: Heart normal in size. Normal vasculature. BONES: No acute findings. HARDWARE: None in the chest. OTHER: No other significant finding. IMPRESSION: NO ACUTE RADIOGRAPHIC FINDING IN THE CHEST. TECHNICAL DOCUMENTATION: JOB ID: [id number] 2010 [employer]- All Rights Reserved Reading location - IP/workstation name: [email or web address]
[2020-08-17] MEDS: BUPROPION HCL 75 MG TABLET PO SCH ×2 (10:52→21:52)
[2020-08-17] MEDS: BUSPIRONE HCL 10 MG TABLET PO SCH ×2 (10:52→21:52)
[2020-08-17] MEDS: FUROSEMIDE 40 MG TABLET PO SCH (10:53)
[2020-08-17] MEDS: ENOXAPARIN SODIUM INJ 40 MG/0.4 ML DISP.SYRIN SUBCUT SCH (10:53)
[2020-08-17] MEDS: CITALOPRAM HYDROBROMIDE 20 MG TABLET PO SCH (10:53)
[2020-08-17] MEDS: AMLODIPINE BESYLATE 10 MG TABLET PO SCH (10:54)
[2020-08-17] MEDS: CLONIDINE HCL 0.2 MG TABLET PO SCH ×2 (10:54→21:53)
[2020-08-17] MEDS: CARVEDILOL 12.5 MG TABLET PO SCH ×2 (10:54→21:54)
[2020-08-17] MEDS: CEFEPIME 1 GM/D5W RTU 1 GM/50 ML RTUPB IV SCH ×2 (10:54→21:52)
--- NOTE | 2020-08-17 16:38 | PDOC PROGRESS REPORT ---
Subjective Progress Note for:: 08/17/20 Subjective:: ADELA MUELLER is a 60 year old female past medical history of DVT, hypertension, diabetes, and depression who was admitted 08/15/2020 for perirectal abscess; now status post surgical intervention. Patient was seen on morning rounds. She is found resting in bed, comfortably, on supplemental oxygen. She is not home O2 dependent. Oxygen removed and she continued to maintain oxygen saturations on room air. She reports slight, nonproductive, cough. Continues to report rectal pain, although, this is decreased as compared to yesterday. T-max 100.7/24 hours. She denies fever, chest pain, dyspnea, orthopnea, cough, abd pain, nausea, and vomiting. She has no other questions or concerns at this time. No concerns per nursing. Reason For Visit: COMPLEX PERINEAL ABSCESS Physical Exam Vital Signs: Temp Pulse Resp BP Pulse Ox 98.5 F 78 23 H 118/54 L 93 08/17/20 10:00 08/17/20 07:22 08/17/20 07:22 08/17/20 07:22 08/17/20 07:22 Intake & Output 08/16/20 08/17/20 08/18/20 06:59 06:59 06:59 Intake Total 770 2000 50 Output Total 475 1075 Balance 295 925 50 Weight 129.8 kg 131.7 kg General appearance: PRESENT: no acute distress, cooperative, morbidly obese, well-developed, well-nourished Head exam: PRESENT: atraumatic, normocephalic Eye exam: PRESENT: conjunctiva pink, EOMI, PERRLA. ABSENT: scleral icterus Ear exam: PRESENT: normal external ear exam Mouth exam: PRESENT: moist, tongue midline Respiratory exam: PRESENT: clear to auscultation mahamed, decreased breath sounds - bibasilar, symmetrical, unlabored. ABSENT: rales, rhonchi, wheezes Cardiovascular exam: PRESENT: RRR. ABSENT: diastolic murmur, rubs, systolic murmur Vascular exam: PRESENT: normal capillary refill Gentrourinary exam: ABSENT: indwelling catheter Extremities exam: PRESENT: full ROM. ABSENT: calf tenderness, clubbing, pedal edema Musculoskeletal exam: PRESENT: ambulatory Neurological exam: PRESENT: alert, awake, oriented to person, oriented to place, oriented to time, oriented to situation, CN II-XII grossly intact. ABSENT: motor sensory deficit Psychiatric exam: PRESENT: appropriate affect, normal mood. ABSENT: homicidal ideation, suicidal ideation Skin exam: PRESENT: dry, intact, warm. ABSENT: cyanosis, rash Results Laboratory Results: 08/16/20 05:06 08/16/20 05:06 08/15/20 05:10 Perineum Gram Stain - Final 08/15/20 05:10 Perineum Wound Culture - Final Klebsiella Pneumoniae Escherichia Coli Yeast, Not Jennifer Albicans Anaerococcus (Peptostrep) Sp. 08/14/20 21:49 Buttocks - Abscess Gram Stain - Final 08/14/20 21:49 Buttocks - Abscess Wound Culture - Final Klebsiella Pneumoniae Escherichia Coli Yeast, Not Jennifer Albicans Anaerococcus (Peptostrep) Sp. Impressions: Abdomen/Pelvis CT 08/15/20 00:00 IMPRESSION: A small right perirectal abscess is identified. There is no obvious communication intrapelvic or with the bowel. There are a few dots of air/gas within the surrounding inflammatory change in the subcutaneous fat. Incidental note is made of hepatic steatosis. Chest X-Ray 08/17/20 00:00 IMPRESSION: NO ACUTE RADIOGRAPHIC FINDING IN THE CHEST. Assessment and Plan - Diagnosis (1) Perineal abscess Is this a current diagnosis for this admission?: Yes Plan: Perineal abscess POD#3 surgical debridement w/ drains placed Blood cultures negative at 48 hours Wound cultures grew Klebsiella, E. coli, Peptostreptococcus, and yeast; Klebsiella and E. coli sensitive to cephalosporins. Continue IV Levaquin and clindamycin; discontinued day #3. Start IV cefepime; can transition to Ceftin or Cefpodoxime at discharge. Primary management per surgical service. (2) Diabetes mellitus Qualifiers: Diabetes mellitus type: type 2 Diabetes mellitus custodial insulin use: with medical terminologist use Is this a current diagnosis for this admission?: Yes Plan: A1C >14% Patient is placed on a consistent carb diet. Increase to Lantus 80 units nightly Accu-Cheks before meals and at bedtime with Humalog for sliding scale coverage. Hypoglycemia protocol in place. Registered dietitian and community health educator consulted. (3) HTN (hypertension) Is this a current diagnosis for this admission?: Yes Plan: Well controlled at present. Provide for adequate pain control. Continue home dose Amlodipine, Coreg, Clonidine. Consider start of CANDICE/ARB if remains uncontrolled. As needed hydralazine and metoprolol. Outpatient PCP follow-up. (4) Depression Is this a current diagnosis for this admission?: Yes Plan: Stable. Continue home medication regiment Wellbutrin, citalopram, gabapentin, trazodone nightly. (5) Morbid obesity with BMI of 40.0-44.9, adult Is this a current diagnosis for this admission?: Yes Plan: BMI 44.1 Lifestyle modification and dietary compliance are encouraged. flash ranging crewmember and patient educator are consulted. (6) Dyspnea Qualifiers: Dyspnea type: unspecified Qualified Code(s): R06.00 - Dyspnea, unspecified Is this a current diagnosis for this admission?: Yes Plan: Patient reports mild dyspnea. Nursing has placed patient on supplemental oxygen overnight 2 nights in a row. Lowest SPO2 is 88%. She denies history of VALERIE, however, states her last sleep study was over 25 years ago. She does admit to 20-year history of smoking; stopped 14 days ago. Chest x-ray is benign. Encourage pulmonary toilet with incentive spirometer, flutter valve, out of bed for meals, and ambulation. As needed nebulizer treatments. Recommend outpatient sleep study. - Time Time Spent with patient: 25-34 minutes Medications reviewed and adjusted accordingly: Yes Anticipated Discharge Disposition: Home, Self Care Anticipated Discharge Timeframe: pending surgical clearance
[2020-08-17] MEDS ORDERED: INSULIN LISPRO 100 UNIT/ML 3 ML VIAL SUBCUT ONE (17:30)
[2020-08-17] MEDS: OXYCODONE-ACETAMINOPHEN 5-325 MG TABLET PO PRN ×2 (17:54→22:06)
--- NOTE | 2020-08-17 18:14 | PDOC PROGRESS REPORT ---
Subjective Progress Note for:: 08/17/20 Reason For Visit: COMPLEX PERINEAL ABSCESS Patient feels little better, did not get into the shower, irrigating the wound; having some difficulty voiding required straight cathing Physical Exam Vital Signs: Temp Pulse Resp BP Pulse Ox 98.5 F 78 23 H 118/54 L 93 08/17/20 10:00 08/17/20 07:22 08/17/20 07:22 08/17/20 07:22 08/17/20 07:22 Intake & Output 08/16/20 08/17/20 08/18/20 06:59 06:59 06:59 Intake Total 770 2000 50 Output Total 475 1075 Balance 295 925 50 Weight 129.8 kg 131.7 kg General appearance: PRESENT: no acute distress Rectal exam: PRESENT: other - Patient examined in the right lateral decubitus position. Drains in place; soupy drainage continues, however overall edema and erythema diminishing Results Laboratory Results: 08/16/20 05:06 08/16/20 05:06 08/15/20 05:10 Perineum Gram Stain - Final 08/15/20 05:10 Perineum Wound Culture - Final Klebsiella Pneumoniae Escherichia Coli Yeast, Not Jennifer Albicans Anaerococcus (Peptostrep) Sp. 08/14/20 21:49 Buttocks - Abscess Gram Stain - Final 08/14/20 21:49 Buttocks - Abscess Wound Culture - Final Klebsiella Pneumoniae Escherichia Coli Yeast, Not Jennifer Albicans Anaerococcus (Peptostrep) Sp. Impressions: Abdomen/Pelvis CT 08/15/20 00:00 IMPRESSION: A small right perirectal abscess is identified. There is no obvious communication intrapelvic or with the bowel. There are a few dots of air/gas within the surrounding inflammatory change in the subcutaneous fat. Incidental note is made of hepatic steatosis. Chest X-Ray 08/17/20 00:00 IMPRESSION: NO ACUTE RADIOGRAPHIC FINDING IN THE CHEST. Assessment & Plan - Diagnosis (1) Perineal abscess Is this a current diagnosis for this admission?: Yes Plan: Impression: Patient is 2 days status post perineal abscess drainage, counterincisions with to loop drains, doing better, with polymicrobial infection including E. coli, MCL, Peptostreptococcus, and yeast Recommendations: 1. Continue vigorous perineal care, intravenous antibiotics 2. Patient can be managed on outpatient basis with bonner showers using hand-held irrigation devices, cool scrub brush local wound care, and transition to oral antibiotics in the next 24 to 48 hours. 3. Patient can follow-up with [facility] in 1 to 2 weeks; leave drains in. 4. Discussed above with JAY Loredo 5. Surgery will sign off; reconsult if clinically indicated (2) Diabetes mellitus Qualifiers: Diabetes mellitus type: type 2 Diabetes mellitus dedicated intermodal truck driver insulin use: with dedicated intermodal truck driver use Is this a current diagnosis for this admission?: Yes (3) Depression Is this a current diagnosis for this admission?: Yes (4) Morbid obesity with BMI of 40.0-44.9, adult Is this a current diagnosis for this admission?: Yes - Time Time Spent: 30 to 50 Minutes Critical Time spent with patient: Less than 15 minutes Medications reviewed and adjusted accordingly: Yes Anticipated Discharge Disposition: Home with Home Health Anticipated Discharge Timeframe: within 48 hours
[2020-08-17] MEDS: TRAZODONE HCL 50 MG TABLET PO SCH (21:54)
[2020-08-17] MEDS: INSULIN GLARGINE,HUM.REC.ANLOG 1,000 UNIT/10 ML VIAL SUBCUT SCH (21:55)
[2020-08-17] MEDS: MICONAZOLE NITRATE 200 MG/SUPP (3 SUPP/BOX) VG SCH (21:55)
[2020-08-18] MEDS: GABAPENTIN 400 MG CAPSULE PO SCH ×3 (06:54→21:20)
[2020-08-18] MEDS: OXYCODONE-ACETAMINOPHEN 5-325 MG TABLET PO PRN ×4 (06:54→22:50)
[2020-08-18] MEDS: INSULIN LISPRO 100 UNIT/ML 3 ML VIAL SUBCUT SCH ×5 (08:12→22:47)
[2020-08-18] MEDS: BUSPIRONE HCL 10 MG TABLET PO SCH ×2 (10:18→21:23)
[2020-08-18] MEDS: CARVEDILOL 12.5 MG TABLET PO SCH ×2 (10:18→21:22)
[2020-08-18] MEDS: CLONIDINE HCL 0.2 MG TABLET PO SCH ×3 (10:18→21:23)
[2020-08-18] MEDS: CEFEPIME 1 GM/D5W RTU 1 GM/50 ML RTUPB IV SCH (10:19)
[2020-08-18] MEDS: AMLODIPINE BESYLATE 10 MG TABLET PO SCH (10:19)
[2020-08-18] MEDS: FUROSEMIDE 40 MG TABLET PO SCH (10:19)
[2020-08-18] MEDS: ENOXAPARIN SODIUM INJ 40 MG/0.4 ML DISP.SYRIN SUBCUT SCH (10:19)
[2020-08-18] MEDS: CITALOPRAM HYDROBROMIDE 20 MG TABLET PO SCH (10:19)
[2020-08-18] MEDS: BUPROPION HCL 75 MG TABLET PO SCH ×2 (10:19→21:22)
[2020-08-18] MEDS: LISINOPRIL 10 MG TABLET PO SCH (13:45)
--- NOTE | 2020-08-18 16:03 | PDOC PROGRESS REPORT ---
Subjective Progress Note for:: 08/18/20 Subjective:: ADELA MUELLER is a 60 year old female past medical history of DVT, hypertension, diabetes, and depression who was admitted 08/15/2020 for perirectal abscess; now status post surgical intervention. Patient was seen on morning rounds. She is found sitting up to the bedside commode on room air. She is now on room air. She did appear to be in discomfort. Reports difficulty w/ voids; has been attempting to relieve bladder pressure for ~1hr w/ 300 ml output. Post-void bladder scan w/ >450ml; vasquez placed. Patient reports continued rectal discomfort/pressure; continues to gradually improve. Continued drainage noted, though this is also slightly decreased. T-max 99.3/24 hrs, 100.7/48 hours. She denies fever, chest pain, dyspnea, orthopnea, cough, nausea, and vomiting. She has no other questions or concerns at this time. No concerns per nursing. Reason For Visit: COMPLEX PERINEAL ABSCESS Physical Exam Vital Signs: Temp Pulse Resp BP Pulse Ox 98.8 F 89 18 185/77 H 99 08/18/20 10:00 08/18/20 07:19 08/18/20 07:19 08/18/20 07:19 08/18/20 07:19 Intake & Output 08/17/20 08/18/20 08/19/20 06:59 06:59 06:59 Intake Total 2000 1785 Output Total 1075 2800 Balance 925 -1015 Weight 131.7 kg 131 kg General appearance: PRESENT: no acute distress, cooperative, morbidly obese, well-developed, well-nourished Head exam: PRESENT: atraumatic, normocephalic Eye exam: PRESENT: conjunctiva pink, EOMI, PERRLA. ABSENT: scleral icterus Mouth exam: PRESENT: moist, tongue midline Teeth exam: PRESENT: poor dentation Respiratory exam: PRESENT: clear to auscultation mahamed, symmetrical, unlabored, other - room air. ABSENT: rales, rhonchi, wheezes Cardiovascular exam: PRESENT: RRR, +S1, +S2. ABSENT: diastolic murmur, rubs, systolic murmur Pulses: PRESENT: normal dorsalis pedis pul Vascular exam: PRESENT: normal capillary refill GI/Abdominal exam: PRESENT: normal bowel sounds, soft, tenderness - suprapubic. ABSENT: distended, guarding, mass, organolmegaly, rebound Extremities exam: PRESENT: full ROM. ABSENT: calf tenderness, clubbing, pedal edema Musculoskeletal exam: PRESENT: ambulatory Neurological exam: PRESENT: alert, awake, oriented to person, oriented to place, oriented to time, oriented to situation, CN II-XII grossly intact. ABSENT: motor sensory deficit Psychiatric exam: PRESENT: appropriate affect, normal mood. ABSENT: homicidal ideation, suicidal ideation Skin exam: PRESENT: dry, intact, warm. ABSENT: cyanosis, rash Results Laboratory Results: 08/16/20 05:06 08/16/20 05:06 Impressions: Abdomen/Pelvis CT 08/15/20 00:00 IMPRESSION: A small right perirectal abscess is identified. There is no obvious communication intrapelvic or with the bowel. There are a few dots of air/gas within the surrounding inflammatory change in the subcutaneous fat. Incidental note is made of hepatic steatosis. Chest X-Ray 08/17/20 00:00 IMPRESSION: NO ACUTE RADIOGRAPHIC FINDING IN THE CHEST. Assessment and Plan - Diagnosis (1) Acute urinary retention Is this a current diagnosis for this admission?: Yes Plan: Patient w/ urinary retention following vasquez catheter. Vasquez removed; multiple straight caths for relief after attempting to void. Post void bladder scan >450ml Have replaced vasquez [facility]. (2) Perineal abscess Is this a current diagnosis for this admission?: Yes Plan: Transition to oral cefpoxoxime today. Analgesics as needed Encourage ambulation Colace. Wound care per surgery: 1. Continue vigorous perineal care, intravenous antibiotics 2. Patient can follow-up with [place] [facility] in 1 to 2 weeks; leave drains in. 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 Increase to Lantus 80 units nightly and 10 units qAM Accu-Cheks before meals and at bedtime with Humalog for sliding scale coverage. Hypoglycemia protocol in place. Registered dietitian and certified adaptive physical educator consulted. (4) HTN (hypertension) Is this a current diagnosis for this admission?: Yes Plan: Elevated today; labile blood pressures. Provide for adequate pain control. Continue home dose Amlodipine, Coreg Increased Clonidine to q8h Start lisinopril As needed hydralazine and metoprolol. Outpatient PCP follow-up. (5) Depression Is this a current diagnosis for this admission?: Yes Plan: Stable. Continue home medication regiment Wellbutrin, citalopram, gabapentin, trazodone nightly. (6) Dyspnea Qualifiers: Dyspnea type: unspecified Qualified Code(s): R06.00 - Dyspnea, unspecified Is this a current diagnosis for this admission?: Yes Plan: Resolved. She does admit to 20-year history of smoking; stopped 14 days ago. Chest x-ray is benign. Encourage pulmonary toilet with incentive spirometer, flutter valve, out of bed for meals, and ambulation. As needed nebulizer treatments. Recommend outpatient sleep study. (7) Morbid obesity with BMI of 40.0-44.9, adult Is this a current diagnosis for this admission?: Yes Plan: BMI 44.1 Lifestyle modification and dietary compliance are encouraged. acura sales consultant and patient educator are consulted. - Time Time Spent with patient: 25-34 minutes Medications reviewed and adjusted accordingly: Yes Anticipated Discharge Disposition: Home, Self Care Anticipated Discharge Timeframe: within 24 hours
[2020-08-18] MEDS ORDERED: TAMSULOSIN HCL 0.4 MG CAP.SR.24H PO SCH (18:00)
[2020-08-18] MEDS: CEFPODOXIME 200 MG TABLET PO SCH (21:21)
[2020-08-18] MEDS: TRAZODONE HCL 50 MG TABLET PO SCH (21:21)
[2020-08-18] MEDS: MICONAZOLE NITRATE 200 MG/SUPP (3 SUPP/BOX) VG SCH (21:24)
[2020-08-18] MEDS: INSULIN GLARGINE,HUM.REC.ANLOG 1,000 UNIT/10 ML VIAL SUBCUT SCH (22:48)
[2020-08-19 05:00] LABS: HEMATOCRIT 32.4 % (36.0-47.0); HEMOGLOBIN 11.1 g/dL (12.0-15.5); MEAN CORPUSCULAR HEMOGLOBIN 31.4 pg (27.0-33.4); MEAN CORPUSCULAR HGB CONC 34.3 g/dL (32.0-36.0); MEAN CORPUSCULAR VOLUME 92 fl (80-97); PLATELET COUNT 212 10^3/uL (150-450); RED BLOOD COUNT 3.54 10^6/uL (3.72-5.28); RED CELL DISTRIBUTION WIDTH 13.8 % (11.5-14.0); WHITE BLOOD COUNT 5.3 10^3/uL (4.0-10.5)
[2020-08-19 05:15] LABS: ANION GAP 5 (5-19); BLOOD UREA NITROGEN 11 mg/dL (7-20); CALCIUM 8.3 mg/dL (8.4-10.2); CARBON DIOXIDE 31 mmol/L (22-30); CHLORIDE 100 mmol/L (98-107); GLUCOSE 204 mg/dL (75-110)
[2020-08-19] MEDS: OXYCODONE-ACETAMINOPHEN 5-325 MG TABLET PO PRN ×2 (06:05→12:50)
[2020-08-19] MEDS: GABAPENTIN 400 MG CAPSULE PO SCH (06:06)
[2020-08-19] MEDS: CLONIDINE HCL 0.2 MG TABLET PO SCH (06:07)
[2020-08-19] MEDS: INSULIN LISPRO 100 UNIT/ML 3 ML VIAL SUBCUT SCH ×2 (08:02→12:06)
[2020-08-19] MEDS ORDERED: INSULIN GLARGINE,HUM.REC.ANLOG 1,000 UNIT/10 ML VIAL SUBCUT SCH (10:00)
[2020-08-19] MEDS: BUSPIRONE HCL 10 MG TABLET PO SCH (11:47)
[2020-08-19] MEDS: BUPROPION HCL 75 MG TABLET PO SCH (11:47)
[2020-08-19] MEDS: FUROSEMIDE 40 MG TABLET PO SCH (11:50)
[2020-08-19] MEDS: AMLODIPINE BESYLATE 10 MG TABLET PO SCH (11:51)
[2020-08-19] MEDS: CITALOPRAM HYDROBROMIDE 20 MG TABLET PO SCH (11:52)
[2020-08-19] MEDS: LISINOPRIL 10 MG TABLET PO SCH (11:52)
[2020-08-19] MEDS: CARVEDILOL 12.5 MG TABLET PO SCH (11:52)
[2020-08-19] MEDS: CEFPODOXIME 200 MG TABLET PO SCH (11:53)
[2020-08-19] MEDS: ENOXAPARIN SODIUM INJ 40 MG/0.4 ML DISP.SYRIN SUBCUT SCH (11:54)
[2020-08-19 12:48] VITALS: BP 161/78
--- NOTE | 2020-08-19 13:51 | PDOC DISCHARGE SUMMARY ---
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 TO GET TIME ) [facility] [Provider Group] (08/15 S/P PERINEAL ABSCESS DEBRIDEMENT) Prescriptions: Buspirone HCl [Buspar 10 mg Tablet] 5 mg PO Q12 30 Days #60 tablet Clonidine HCl [Catapres 0.2 mg Tablet] 0.2 mg PO Q8 30 Days #30 tablet Tamsulosin HCl [Flomax 0.4 mg Cap.sr] 0.4 mg PO PCSUPPER 15 Days #15 cap.sr.24h Oxycodone HCl/Acetaminophen [Percocet 5-325 mg Tablet] 2 tab PO Q4HP PRN 3 Days #15 tablet NS PRN Reason: Lisinopril [Prinivil 10 mg Tablet] 20 mg PO DAILY 60 Days #60 tablet Acetaminophen [Tylenol 325 mg Tablet] 325 mg PO Q4HP PRN 14 Days #30 tablet PRN Reason: Cefpodoxime Proxetil [Vantin 200 mg Tablet] 400 mg PO Q12 8 Days #16 tablet Home Medications: Amlodipine Besylate [Norvasc 10 mg Tablet] 10 mg PO DAILY 08/15/20 Apixaban [Eliquis 2.5 mg Tablet] 2.5 mg PO Q12 08/15/20 Bupropion HCl [Bupropion Xl] 150 mg PO DAILY 08/15/20 Carvedilol [Coreg 12.5 mg Tablet] 25 mg PO Q12 08/15/20 Citalopram Hydrobromide [Celexa 20 mg Tablet] 20 mg PO DAILY 08/15/20 Dulaglutide [Trulicity] 1.5 mg SQ FR@1000 08/15/20 Furosemide [Lasix 40 mg Tablet] 40 mg PO DAILY 08/15/20 Gabapentin [Neurontin] 800 mg PO Q8 08/15/20 Insulin Aspart [Novolog Flexpen] 25 unit SQ BIDBS 08/15/20 Insulin Glargine,Hum.rec.anlog [Tyler Arreola] 80 unit SQ QHS 08/15/20 Suvorexant [Belsomra] 20 mg PO QHS 08/15/20 Trazodone HCl [Desyrel 50 mg Tablet] 50 mg PO QHS 08/15/20 Acetaminophen [Tylenol 325 mg Tablet] 325 mg PO Q4HP PRN 14 Days #30 tablet 08/19/20 Buspirone HCl [Buspar 10 mg Tablet] 5 mg PO Q12 30 Days #60 tablet 08/19/20 Cefpodoxime Proxetil [Vantin 200 mg Tablet] 400 mg PO Q12 8 Days #16 tablet 08/19/20 Clonidine HCl [Catapres 0.2 mg Tablet] 0.2 mg PO Q8 30 Days #30 tablet 08/19/20 Lisinopril [Prinivil 10 mg Tablet] 20 mg PO DAILY 60 Days #60 tablet 08/19/20 Oxycodone HCl/Acetaminophen [Percocet 5-325 mg Tablet] 2 tab PO Q4HP PRN 3 Days #15 tablet NS 08/19/20 Tamsulosin HCl [Flomax 0.4 mg Cap.sr] 0.4 mg PO PCSUPPER 15 Days #15 cap.sr.24h 08/19/20 History of Present Illiness History of Present Illness: ADELA MUELLER is a 60 year old female, ADELA MUELLER is a 60 year old female past medical history of DVT, hypertension, diabetes, depression, presenting to ED complaining of right buttock pain and swelling for the last 1 week, patient noted swelling to spontaneous rupture couple of days ago with drainage of brown purulent fluid. Patient is complaining of severe rectal pain, otherwise denies any fever, chills, nausea, vomiting, diarrhea, constipation or any urinary symptoms. Patient was admitted under surgical team for I&D of rectal abscess and hospitalist was consulted for medical medical management of diabetes, hypertension. She underwent Excisional debridement of complex deep perineal abscess. Exam under anesthesia on 08/15/20. She continued to do well and was eventually transitioned to oral abx. She was unable to void spontaneously despite straight cath and voiding trials hence she will be discharged with a vasquez and advised to follow up with a urologist as an outpatient. She was started on flomax as well. Hospital Course Hospital Course: She underwent Excisional debridement of complex deep perineal abscess. Exam under anesthesia on 08/15/20. She continued to do well on IV abx levaquin and clinda and was eventually transitioned to oral abx. She was unable to void spontaneously despite straight cath and voiding trials hence she will be discharged with a vasquez and advised to follow up with a urologist as an outpatient. She was started on flomax as well. Clonidine dose increased and lisinopril started for uncontrolled BP. Physical Exam Vital Signs: Temp Pulse Resp BP Pulse Ox 98.9 F 67 20 161/78 H 98 08/19/20 12:00 08/19/20 12:00 08/19/20 12:00 08/19/20 12:00 08/19/20 12:00 Intake & Output 08/18/20 08/19/20 08/20/20 06:59 06:59 06:59 Intake Total 1785 2320 1443 Output Total 2800 3130 1000 Balance -1015 -810 443 Weight 131 kg 130.6 kg General appearance: PRESENT: no acute distress, cooperative Head exam: PRESENT: atraumatic, normocephalic Eye exam: PRESENT: EOMI, PERRLA Mouth exam: PRESENT: moist Neck exam: PRESENT: full ROM. ABSENT: lymphadenopathy Respiratory exam: PRESENT: clear to auscultation mahamed, symmetrical, unlabored. ABSENT: rales Cardiovascular exam: PRESENT: RRR, +S1, +S2 Pulses: PRESENT: +2 pedal pulses bilateral GI/Abdominal exam: PRESENT: normal bowel sounds, soft. ABSENT: rebound, tenderness Rectal exam: PRESENT: other - drains in place to remain until follow up with surgery Extremities exam: PRESENT: full ROM Musculoskeletal exam: PRESENT: full ROM Neurological exam: PRESENT: alert, awake, oriented to person, oriented to place, oriented to time, oriented to situation Psychiatric exam: PRESENT: normal mood Results Laboratory Results: WBC 5.3 10^3/uL (4.0-10.5) 08/19/20 04:40 RBC 3.54 10^6/uL (3.72-5.28) L 08/19/20 04:40 Hgb 11.1 g/dL (12.0-15.5) L 08/19/20 04:40 Hct 32.4 % (36.0-47.0) L 08/19/20 04:40 MCV 92 fl (80-97) 08/19/20 04:40 MCH 31.4 pg (27.0-33.4) 08/19/20 04:40 MCHC 34.3 g/dL (32.0-36.0) 08/19/20 04:40 RDW 13.8 % (11.5-14.0) 08/19/20 04:40 Plt Count 212 10^3/uL (150-450) 08/19/20 04:40 Lymph % (Auto) 9.3 % (13-45) L 08/14/20 19:43 Price % (Auto) 9.2 % (3-13) 08/14/20 19:43 Eos % (Auto) 0.9 % (0-6) 08/14/20 19:43 Baso % (Auto) 0.6 % (0-2) 08/14/20 19:43 Absolute Neuts (auto) 8.0 10^3/uL (1.7-8.2) 08/14/20 19:43 Absolute Lymphs (auto) 0.9 10^3/uL (0.5-4.7) 08/14/20 19:43 Absolute Monos (auto) 0.9 10^3/uL (0.1-1.4) 08/14/20 19:43 Absolute Eos (auto) 0.1 10^3/uL (0.0-0.6) 08/14/20 19:43 Absolute Basos (auto) 0.1 10^3/uL (0.0-0.2) 08/14/20 19:43 Seg Neutrophils % 80.0 % (42-78) H 08/14/20 19:43 PT 14.6 SEC (11.4-15.4) 08/14/20 19:43 INR 1.12 08/14/20 19:43 VBG pH 7.36 (7.30-7.42) 08/14/20 18:22 VBG pCO2 44.7 mmHg (35-63) 08/14/20 18:22 VBG HCO3 24.9 mmol/L (20-32) 08/14/20 18:22 VBG Base Excess -0.8 mmol/L 08/14/20 18:22 Sodium 136.4 mmol/L (137-145) L 08/19/20 04:40 Potassium 4.0 mmol/L (3.6-5.0) 08/19/20 04:40 Chloride 100 mmol/L (98-107) 08/19/20 04:40 Carbon Dioxide 31 mmol/L (22-30) H 08/19/20 04:40 Anion Gap 5 (5-19) 08/19/20 04:40 BUN 11 mg/dL (7-20) 08/19/20 04:40 Creatinine 0.65 mg/dL (0.52-1.25) 08/19/20 04:40 Est GFR ( Amer) > 60 (>60) 08/19/20 04:40 Est GFR (MDRD) Non-Af > 60 (>60) 08/19/20 04:40 Glucose 204 mg/dL (75-110) H 08/19/20 04:40 POC Glucose 125 mg/dL (70-110) H 08/19/20 11:35 Hemoglobin A1c % > 14.0 % (4.7-6.0) H 08/16/20 05:06 Lactic Acid 1.0 mmol/L (0.7-2.1) 08/14/20 22:34 Calcium 8.3 mg/dL (8.4-10.2) L 08/19/20 04:40 Total Bilirubin 0.5 mg/dL (0.2-1.3) 08/14/20 19:43 Direct Bilirubin 0.4 mg/dL (0.0-0.4) 08/14/20 19:43 Neonat Total Bilirubin Not Reportable 08/14/20 19:43 Neonat Direct Bilirubin Not Reportable 08/14/20 19:43 Neonat Indirect Bili Not Reportable 08/14/20 19:43 AST 19 U/L (14-36) 08/14/20 19:43 ALT 21 U/L (<35) 08/14/20 19:43 Alkaline Phosphatase 114 U/L (38-126) 08/14/20 19:43 Total Protein 5.4 g/dL (6.3-8.2) L 08/14/20 19:43 Albumin 2.6 g/dL (3.5-5.0) L 08/14/20 19:43 Urine Color YELLOW 08/14/20 20:00 Urine Appearance CLEAR 08/14/20 20:00 Urine pH 6.0 (5.0-9.0) 08/14/20 20:00 Ur Specific [place] 1.036 08/14/20 20:00 Urine Protein 30 mg/dL (NEGATIVE) H 08/14/20 20:00 Urine Glucose (UA) >=500 mg/dL (NEGATIVE) H 08/14/20 20:00 Urine Ketones 20 mg/dL (NEGATIVE) H 08/14/20 20:00 Urine Blood NEGATIVE (NEGATIVE) 08/14/20 20:00 Urine Nitrite (Reflex) NEGATIVE (NEGATIVE) 08/14/20 20:00 Urine Bilirubin NEGATIVE (NEGATIVE) 08/14/20 20: Urine Urobilinogen NEGATIVE mg/dL (<2.0) 08/14/20 20:00 Leukocyte Esterase Rfl NEGATIVE (NEGATIVE) 08/14/20 20:00 Urine RBC (Auto) 0 /HPF 08/14/20 20:00 Urine WBC (Reflex) < 1 /HPF 08/14/20 20:00 Squamous Epi Cells Auto <1 /HPF 08/14/20 20:00 Urine Ascorbic Acid NEGATIVE (NEGATIVE) 08/14/20 20:00 SARS-CoV-2 (PCR) NEGATIVE (NEGATIVE) 08/15/20 03:25 Impressions: Abdomen/Pelvis CT 08/15/20 00:00 IMPRESSION: A small right perirectal abscess is identified. There is no obvious communication intrapelvic or with the bowel. There are a few dots of air/gas within the surrounding inflammatory change in the subcutaneous fat. Incidental note is made of hepatic steatosis. Chest X-Ray 08/17/20 00:00 IMPRESSION: NO ACUTE RADIOGRAPHIC FINDING IN THE CHEST. Plan Health Concerns: Abscess You have an abscess (boil). This a pus-forming infection, usually due to staph. Some boils may be left to drain on their own, but most require lancing. From the time the tender lump first appears, it may be three or four days before the abscess is ready to karlee. Local heat and rest help at this stage of treatment. An antibiotic may prevent spread of the infection. Once the abscess is opened, packing may be placed into it. This is done so pus is not sealed inside by premature closure of the cavity. The packing will be removed at your follow-up visit or you may be advised to remove it yourself at home. Sometimes this packing must be replaced a few times during healing. The wound will heal with surprisingly little scar. Depending on the size and location of an abscess, healing can take one to four weeks. You may shower and wash the area around the incision site two or three times a day. Antibiotics may be prescribed, but are usually not necessary after an abscess has been drained. If you develop fever, chilling, worsening pain, or increasing swelling in the area, call the doctor or return immediately. Plan of Treatment: - surgical wound dressing for home health and she needs to follow up with surgery outpatient in 1-2 weeks - follow up with urology outpatient for vasquez catheter Time Spent: Greater than 30 Minutes Stroke Is this a Stroke Patient?: No Acute Heart Failure Is this a Heart Failure Patient?: No
== END 2020-08-19 16:30 | disposition home health service (06) | DRG 394 ==
LOC: ER 19:20 → EH 08-15 03:21 → OBSVTOIN 08-15 05:54 → 4N 08-15 06:20
PROVIDERS: ADMIT Surgery; ATTEND Internal Medicine
PROC: 0HB9XZZ Excision of Perineum Skin, External Approach (ICD-10-PCS; principal; 2020-08-15 04:00)
DX: K61.1 Rectal abscess (principal); Z68.41 Body mass index [BMI] 40.0-44.9, adult; B96.1 Klebsiella pneumoniae [K. pneumoniae] as the cause of diseases classified elsewhere; B96.20 Unspecified Escherichia coli [E. coli] as the cause of diseases classified elsewhere; R33.9 Retention of urine, unspecified; I10 Essential (primary) hypertension; F32.9 Major depressive disorder, single episode, unspecified; E11.65 Type 2 diabetes mellitus with hyperglycemia; E66.01 Morbid (severe) obesity due to excess calories; B95.4 Other streptococcus as the cause of diseases classified elsewhere; B37.9 Candidiasis, unspecified; Z03.818 Encounter for observation for suspected exposure to other biological agents ruled out; Z79.899 Other long term (current) drug therapy; Z79.01 Long term (current) use of anticoagulants; Z79.4 Long term (current) use of insulin; Z86.718 Personal history of other venous thrombosis and embolism; Z87.891 Personal history of nicotine dependence; Z88.0 Allergy status to penicillin
CPT/HCPCS: 36415; 400; 71045; 74177; 80048; 80053; 81001; 82803; 82962; 83036; 83605; 85025; 85027; 85610; 87040; 87070; 87075; 87077; 87186; 87205; 87635; 93005; 93010; 94667; 94668; 94799; 96361; 96365; 96372; 96375; 99140; 99285; C9803; J0692; J1650; J1815; J1956; J2250; J2270; J2405; J2704; J3010; J3490; J7030